=== PATIENT | female | born 1960 | race Caucasian/White ===

== ENCOUNTER 2017-07-16 11:52 | Inpatient (IN) ==
[2017-07-16] MEDS ORDERED: *HR* HYDROcodone/Acet 10/325 mg TABLET PO ONE (11:56)
[2017-07-16] MEDS ORDERED: Ibuprofen 800 MG TABLET PO ONE (11:57)
--- NOTE | 2017-07-16 12:04 | Emergency Department Note ---
Disposition Clinical Impression: Macrocytic anemia Fall Qualifiers: Encounter type: initial encounter Qualified Code(s): W19.XXXA - Unspecified fall, initial encounter Hip fracture Qualifiers: Encounter type: initial encounter Fracture type: closed Laterality: right Qualified Code(s): S72.001A - Fracture of unspecified part of neck of right femur, initial encounter for closed fracture Disposition: Admitted As Inpatient Condition: Fair Referrals: Bravo De Los Santos MD [Primary Care Provider] - Forms: ED Satisfaction Letter Time of Disposition: 12:30 Lower Extremity Injury HPI - General Chief Complaint: ED Extremity Injury, Lower Stated Complaint: fall Time Seen by Provider: 07/16/17 11:55 Source: patient, EMS Mode of arrival: EMS Limitations: no limitations Nursing Notes Reviewed: Yes Vital Signs Reviewed: Yes - History of Present Illness HPI Narrative: Patient presents from home by EMS after a fall at 7 PM last evening. She states she tripped over a dust muller. She complains of right thigh pain. Pain with ambulation. She has been unable to bear full weight. No analgesics taken prior to arrival and she takes no blood thinners. She denies other injury Pt Subjective Complaint: thigh injury Injury location: Right thigh Onset (ago): hour(s) Mechanism of Injury: blunt, fall Context: direct blow Place: home Pain Severity: severe Improves with: immobilization Worsens with: weight bearing, movement, palpation Associated symptoms: Reports: unable to bear weight - Related Data Home Medications Medication Instructions Recorded Confirmed ALPRAZolam [Xanax 1 MG Tablet] 1 mg PO TID PRN 07/16/17 07/16/17 Megestrol Acetate [Megace] 40 mg PO BID 07/16/17 07/16/17 Mirtazapine [Remeron] 15 mg PO HS 07/16/17 07/16/17 Allergies Allergy/AdvReac Type Severity Reaction Status Date / Time No Known Allergies Allergy Verified 07/16/17 11:52 All systems ED: reviewed and negative except as stated. Constitutional: Reports: as per HPI Eyes: Reports: as per HPI ENT ED: Reports: as per HPI Cardiovascular: Reports: as per HPI Respiratory: Reports: as per HPI Gastrointestinal: Reports: as per HPI Genitourinary: Reports: as per HPI Musculoskeletal: Reports: other (Right thigh pain) Integumentary: Reports: as per HPI Neurological: Reports: as per HPI Psychiatric: Reports: as per HPI Endocrine: Reports: as per HPI Hematological/Lymphatic: Reports: as per HPI Allergic/Immunologic: Reports: as per HPI Past Medical History - Past Medical History Source: patient Medical history: Reports: no medical history Psychiatric history: Reports: anxiety, depression - Social History Smoking Status: Former smoker Smokeless Tobacco Status: No Alcohol use: Reports: none Drug use: Reports: none Physical Exam - General Limitations: no limitations General appearance: alert, in no apparent distress, anxious - Head Head exam: atraumatic - Eye Eye exam: Present: normal appearance - ENT ENT exam: normal exam - Neck Neck exam: Present: normal inspection - Chest Chest inspection: Present: normal inspection, symmetric chest wall rise - Respiratory Respiratory exam: Present: normal lung sounds bilaterally - Cardiovascular Cardiovascular exam: Present: regular rate, normal rhythm, normal heart sounds - Extremities Exam Extremities exam: Present: normal inspection, tenderness (Tender without crepitus or gross deformity to the right upper lateral thigh.) - Expanded Lower Extremity Exam Hip/Pelvis exam: Present: normal inspection, full ROM Knee exam: Present: normal inspection Lower leg exam: Present: normal inspection Ankle exam: Present: normal inspection Foot/toe exam: Present: normal inspection Neurovascular/Tendon exam: Absent: pulse deficit, sensory deficit - Neurological Exam Neurological exam: Present: alert, oriented X3, CN II-XII intact - Psychiatric Psychiatric exam: Present: anxious - Skin Skin exam: Present: warm, dry, intact Course Course Narrative: Patient presents after mechanical fall. She complains of right thigh pain. Imaging studies ordered. Analgesics offered - Reevaluation(s) Reevaluation #1: X-ray image reviewed by me. Call placed orthopedics. I will arrange admission Reevaluation #2: Dr. Dior, orthopedics, has evaluated the patient in the ED. Dr. Weston accepts admission - Consultations Consultation #1: Call placed to orthopedics professional housing consultant Vital Signs Temperature 98.4 F 07/16/17 11:53 Pulse Rate 84 07/16/17 11:53 Respiratory Rate 16 07/16/17 11:53 Blood Pressure 119/78 07/16/17 11:53 O2 Sat by Pulse Oximetry 97 07/16/17 11:53 Temperature 98.4 F 07/16/17 11:53 Pulse Rate 84 07/16/17 11:53 Respiratory Rate 16 07/16/17 11:53 Blood Pressure 119/78 07/16/17 11:53 O2 Sat by Pulse Oximetry 97 07/16/17 11:53 Oxygen Delivery Oxygen Delivery Room Air Extremity Injury, Lower - Lab Data Lab results reviewed: Yes I reviewed the patient's lab results. Result diagrams: 07/16/17 12:39 Lab Results 07/16/17 Range/Units 12:39 WBC 4.4 (4.3-11.1) K/mcL RBC 2.67 L (3.82-4.97) M/mcL Hgb 9.7 L (11.5-15.4) g/dL Hct 28.5 L (35.3-44.9) % MCV 106.7 H (83.0-100.0) fL MCH 36.3 H (28.0-33.3) pg MCHC 34.0 (31.6-35.5) g/dL RDW 16.4 H (11.5-14.5) % Plt Count 161 (140-400) K/mcL MPV 9.8 (9.4-12.4) fL Immature Gran % 0.5 (0-4) % Seg Neutrophils % 67.4 % Lymphocytes % 28.2 % Monocytes % 1.6 % Eosinophils % 2.3 % Basophils % 0.0 % Neutrophils # 2.9 (1.6-8.9) K/mcL Lymphocytes # 1.2 (0.6-4.6) K/mcL Monocytes # 0.1 (0.0-1.3) K/mcL Eosinophils # 0.1 (0.0-0.6) K/mcL Basophils # 0.0 (0.0-0.2) K/mcL - Radiology Data Radiology results reviewed: Yes I reviewed the patient's radiology results. - EKG Data EKG attestation: Yes I reviewed and interpreted this EKG. EKG results narrative: Normal sinus rhythm rate 74. GA 134 QRS 71 QT/QTC 371/398. No previous studies for comparison
[2017-07-16] MEDS ORDERED: *HR* FentaNYL (PF) 100 MCG/2 ML VIAL IVP ONE (12:28)
[2017-07-16 12:49] LABS: Eosinophils # 0.1 K/mcL (0.0-0.6); Eosinophils % 2.3 %; Hematocrit 28.5 % (35.3-44.9); Hemoglobin 9.7 g/dL (11.5-15.4); Immature Granulocytes % 0.5 % (0-4); Lymphocytes # 1.2 K/mcL (0.6-4.6); Lymphocytes % 28.2 %; Mean Corpuscular Hemoglobin 36.3 pg (28.0-33.3); Mean Corpuscular Volume 106.7 fL (83.0-100.0); Mean Platelet Volume 9.8 fL (9.4-12.4); Monocytes # 0.1 K/mcL (0.0-1.3); Monocytes % 1.6 %; Neutrophils # 2.9 K/mcL (1.6-8.9); Platelet Count 161 K/mcL (140-400); Red Blood Count 2.67 M/mcL (3.82-4.97); Red Cell Distribution Width 16.4 % (11.5-14.5); Segmented Neutrophils % 67.4 %
[2017-07-16] MEDS ORDERED: *HR* Morphine 2 MG/ML SYRINGE IVP PRN (12:57)
[2017-07-16] MEDS ORDERED: Ondansetron 4 MG/2 ML VIAL IVP PRN ×2 (12:57→14:59)
[2017-07-16] MEDS ORDERED: Naloxone 0.4 MG/ML INJ IVP PRN ×2 (12:57→15:34)
[2017-07-16 13:02] LABS: INR 1.4; Prothrombin Time 15.1 Seconds (9.4-12.1)
--- NOTE | 2017-07-16 13:06 | Orthopedic Consult Note ---
Date of Encounter: 07/16/17 Time of Encounter: 13:04 Assessment and Plan (1) Hip fracture Current Visit: Yes Status: Acute I did discuss the diagnosis in detail with the patient. She does have a right intertrochanteric hip fracture as described above. Treatment options were discussed and my recommendation was for internal fixation in order to stabilize the right hip, control the pain, and help facilitate nursing care. The risks discussed included but were not limited to stiffness, bleeding, infection, blood clots, damage to neurovascular structures, tendons, ligaments, and bone. Also discussed was the risk of continued symptoms and possible need for further procedures. I did discuss the anesthesia risks including stroke, heart attack, and . I did discuss the reasonable, foreseeable postoperative course with the patient. The patient does have a low hemoglobin and history of anemia. A type and screen has been ordered, and she is at high risk of requiring a blood transfusion. She will require medical clearance. I did discuss this with the patient in simple terms and she did wish to proceed and consent was obtained. Qualifiers: Encounter type: initial encounter Fracture type: closed Laterality: right Qualified Code(s): S72.001A - Fracture of unspecified part of neck of right femur, initial encounter for closed fracture History of Present Illness HPI: Ms. Aragon is a 56 year old female with a history of anemia, anxiety, and depression who comes in for evaluation of her right lower extremity. She lives independently with her . She had an injury last night when she tripped over a broom and had right hip and thigh pain. She did not think that she was seriously injured and was unable to ambulate and drive herself across the floor. Due to persistent pain she presented to the emergency department today where x-rays did demonstrate a nondisplaced intertrochanteric hip fracture. She was admitted to the hospitalist and orthopedics was counseled today to evaluate and manage the patient. My evaluation the patient planes of isolated pain about the right groin and proximal thigh region. She denies any headaches , neck pain, chest pain, abdominal pain, bilateral upper extremity pain, and left lower extremity pain. She denies any numbness, tingling, or any other associated signs or symptoms. Any movement of the right lower extremity exacerbates her symptoms. No other modifying factors. Past Med Surg Social Fam HX - Past Medical History Medical history: no medical history Psychiatric history: anxiety, depression - Social History Smoking Status: Former smoker Smokeless Tobacco Status: No Alcohol use: none Drug use: none Medications and Allergies ALPRAZolam [Xanax 1 MG Tablet] 1 mg PO TID PRN 07/16/17 [History] Megestrol Acetate [Megace] 40 mg PO BID 07/16/17 [History] Mirtazapine [Remeron] 15 mg PO HS 07/16/17 [History] 3 Allergy/AdvReac Type Severity Reaction Status Date / Time No Known Allergies Allergy Verified 07/16/17 11:52 All Systems Reviewed: Constitutional and musculoskeletal systems were reviewed and are negative unless otherwise stated in history of present illness. Physical Exam - Constitutional Vitals: Temp Pulse Resp BP Pulse Ox 98.4 F 84 16 119/78 97 07/16/17 11:53 07/16/17 11:53 07/16/17 11:53 07/16/17 11:53 07/16/17 11:53 Constitutional -Vitals reviewed -The patient is exceedingly lean. -Mood is pleasant. -The patient is well groomed. Psychiatric -The patient is fully alert and oriented x 3. Respiratory: -Respiratory effort normal Abdomen: -Soft abdomen -Non tender -Non distended: Left upper extremity: -No deformities. The overlying skin is intact. No obvious signs of acute trauma. -No tenderness to palpation throughout. -No significant pain with passive motion of the shoulder, elbow, wrist, and fingers within the limits of the bed. -Able to make an "OK" sign, cross the index and long fingers, and extend the thumb. -Sensation grossly intact to light touch throughout the median, radial, and ulnar distributions. -Radial pulse is present; Fingers have good capillary refill. Right upper extremity: -No deformities. The overlying skin is intact. -There is tenderness in the groin region as well as the proximal lateral thigh. -I did not range the hip due to the known fracture. -No tenderness along the distal thigh, leg, ankle, foot, or toes. -Able to dorsiflex and plantarflex the ankle and toes. -Sensation is grossly intact to light touch throughout the sural, saphenous, superficial peroneal, and deep peroneal distributions. -Toes have good capillary refill. Left lower extremity: -No deformities. The overlying skin is intact. No obvious signs of acute trauma. -No tenderness to palpation throughout. -No pain with passive motion of the hip, knee, ankle, and toes within the limits of the bed. -No pain with axial loading of the thigh. -Able to dorsiflex and plantarflex the ankle and toes. -Sensation is grossly intact to light touch throughout the sural, saphenous, superficial peroneal, and deep peroneal distributions. -Toes have good capillary refill. Right lower extremity: -No deformities. The overlying skin is intact. No obvious signs of acute trauma. -No tenderness to palpation throughout. -No pain with passive motion of the hip, knee, ankle, and toes within the limits of the bed. -No pain with axial loading of the thigh. -Able to dorsiflex and plantarflex the ankle and toes. -Sensation is grossly intact to light touch throughout the sural, saphenous, superficial peroneal, and deep peroneal distributions. -Toes have good capillary refill. Diagnostic Imaging: I did personally review and interpret an x-ray of the pelvis as well as right femur which demonstrates a nondisplaced standard obliquity intertrochanteric right hip fracture. Results - Labs Result Diagrams: 07/16/17 12:39 Labs: Abnormal lab results RBC 2.67 M/mcL (3.82-4.97) L 07/16/17 12:39 Hgb 9.7 g/dL (11.5-15.4) L 07/16/17 12:39 Hct 28.5 % (35.3-44.9) L 07/16/17 12:39 MCV 106.7 fL (83.0-100.0) H 07/16/17 12:39 MCH 36.3 pg (28.0-33.3) H 07/16/17 12:39 RDW 16.4 % (11.5-14.5) H 07/16/17 12:39 PT 15.1 Seconds (9.4-12.1) H 07/16/17 12:39 H & H 07/16/17 Range/Units 12:39 Hgb 9.7 L (11.5-15.4) g/dL Hct 28.5 L (35.3-44.9) % All other labs normal. Consult Discharge Plan - Plan Referrals: Bravo De Los Santos MD [Primary Care Provider] -
[2017-07-16 13:09] LABS: Alanine Aminotransferase 20 Units/L (0-55); Albumin 4.3 g/dL (3.5-5.0); Albumin/Globulin Ratio 1.8 (1.1-2.2); Alkaline Phosphatase 71 Units/L (38-126); Aspartate Amino Transferase 20 Units/L (5-34); BUN/Creatinine Ratio 21 (6-26); Bilirubin,Total 1.5 mg/dL (0.2-1.2); Blood Urea Nitrogen 14 mg/dL (7-20); Calcium 9.5 mg/dL (8.6-10.8); Carbon Dioxide 25 mEq/L (19-29); Chloride 107 mEq/L (98-109); Globulin 2.4 g/dL (2.4-3.5); Glucose 87 mg/dL (70-99); Osmolality,Calculated 288 (280-300); Potassium 3.7 mEq/L (3.5-4.5); Sodium 139 mEq/L (136-145); Total Protein 6.7 g/dL (6.0-8.3); eGFR For African Americans > 60 (> 60); eGFR For Non-African Americans > 60 (> 60)
[2017-07-16] MEDS ORDERED: 0.9 % Sodium Chloride 1,000 ML ONE (13:15)
--- NOTE | 2017-07-16 13:25 | Internal Med History&Physical ---
Date of Encounter: 07/16/17 Time of Encounter: 13:00 Assessment and Plan (1) Hip fracture Current visit: Yes Status: Acute s/p mechanical fall orthopedic consultation appreciated patient is at low risk for an intermediate risk procedure pain control PT/OT after surgery will initiate DVT ppx after surgery NPO after midnight Qualifiers: Encounter type: initial encounter Fracture type: closed Laterality: right Qualified Code(s): S72.001A - Fracture of unspecified part of neck of right femur, initial encounter for closed fracture (2) Fall Current visit: Yes Status: Acute s/p mechanical fall ortho intervention for hip fracture repair PT/OT after surgery Qualifiers: Encounter type: initial encounter Qualified Code(s): W19.XXXA - Unspecified fall, initial encounter (3) Anxiety Current visit: Yes Status: Chronic continue home medications (4) Depression Current visit: Yes Status: Chronic continue home medications Qualifiers: Depression Type: unspecified Qualified Code(s): F32.9 - Major depressive disorder, single episode, unspecified (5) Macrocytic anemia Current visit: Yes Status: Chronic H&H low but acceptable no acute bleeding reported at this time will do anemia work up (Iron studies, Ferritin, Vit B12, Folate) continue to monitor H&H and transfuse as needed patient at high risk for requiring transfusions post-op (6) DVT prophylaxis Current visit: Yes Status: Acute SCD Lovenox SQ after surgery Internal Medicine - H&P: HPI Chief complaint: s/p fall Admitted From: Home Plans for Post Hospital Care: Transfer Half-Way Facility History of present illness: Ms. Aragon is a 56 year old female with PMH Of depression and anxiety presents to the hospital for evaluation of right hip pain, s/p fall. Patient reports of having a mechanical fall last night and since the pain persisted, she came to the ER for further evaluation. Upon further evaluation, patient was found to have right hip fracture. Pt denies any other symptoms apart from the pain on right hip. She was evaluated by orthopedic surgery and is tentatively schedule for surgery later today. Past Med Surg Social Fam HX - Past Medical History Medical history: no medical history Psychiatric history: anxiety, depression - Social History Smoking Status: Former smoker Smokeless Tobacco Status: No Alcohol use: none Drug use: none Internal Medicine - H&P: Meds ALPRAZolam [Xanax 1 MG Tablet] 1 mg PO TID PRN 07/16/17 [History] Megestrol Acetate [Megace] 40 mg PO BID 07/16/17 [History] Mirtazapine [Remeron] 15 mg PO HS 07/16/17 [History] 3 Allergy/AdvReac Type Severity Reaction Status Date / Time No Known Allergies Allergy Verified 07/16/17 11:52 All Systems PM: A 10-system review of systems was performed and is negative for pertinent findings except as documented above in the HPI. - Constitutional Constitutional: no chills, no fatigue, no fever(s), no weakness - Constitutional Vitals: Temp Pulse Resp BP Pulse Ox 98.4 F 84 16 119/78 97 07/16/17 11:53 07/16/17 11:53 07/16/17 11:53 07/16/17 11:53 07/16/17 11:53 General appearance: Present: A&O X 3, no acute distress - Head Head exam: Present: atraumatic, normocephalic - Respiratory Respiratory exam: Absent: respiratory distress, wheezes - Cardiovascular Cardiovascular exam: Present: RRR, +S1, +S2. Absent: diastolic murmur, gallop, rubs, systolic murmur - GI/Abdominal GI/Abdominal exam: Present: normal bowel sounds, soft, no peritoneal signs. Absent: distended, tenderness - Extremities Exam Extremities exam: Present: warm, radial pulses palpable and symmetrical. Absent : calf tenderness, cyanotic, pedal edema - Neurological Exam Neurological exam: Present: alert, oriented X3 - Psychiatric Psychiatric exam: Present: normal affect, normal mood Internal Med - H&P Results - Labs CBC & Chem 7: 07/16/17 12:39 07/16/17 12:39
[2017-07-16] MEDS ORDERED: *HR* Propofol 200 MG/20 ML VIAL IVP ONE ×2 (13:31→13:42)
[2017-07-16] MEDS ORDERED: *HR* Midazolam HCl 2 MG/2 ML VIAL ONE ×2 (13:31→13:42)
[2017-07-16] MEDS ORDERED: *HR* FentaNYL (PF) 100 MCG/2 ML VIAL ONE ×2 (13:31→13:42)
--- NOTE | 2017-07-16 13:41 | Anesthesia Evaluation PreOp ---
Date of Encounter: 07/16/17 Time of Encounter: 13:30 - Past History Planned Operation: Right Hip IM Nailing Cardiac History: Denies any Significant Hx Pulmonary History: Former smoker (quit 3 years ago, smoked for 30 years) VARITYPE OPERATOR History: Denies Any Significant HX Other Medical History: Other (anxiety/depression) Anesthesia History: No Prior Anesthetic Complications, Past Anesthesia Alcohol Use: none Drug use: none Medications and Allergies ALPRAZolam [Xanax 1 MG Tablet] 1 mg PO TID PRN 07/16/17 [History] Megestrol Acetate [Megace] 40 mg PO BID 07/16/17 [History] Mirtazapine [Remeron] 15 mg PO HS 07/16/17 [History] 3 Allergy/AdvReac Type Severity Reaction Status Date / Time No Known Allergies Allergy Verified 07/16/17 11:52 - Meds/Allergy Pre-op Review Medications Reviewed: Yes Allergies Reviewed: Yes Beta Blockers on Current Med List: No Anesthesia Results - Labs 07/16/17 12:39 07/16/17 12:39 Laboratory Tests 07/16/17 07/16/17 07/16/17 12:39 12:39 12:39 WBC 4.4 Hgb 9.7 L Hct 28.5 L Plt Count 161 PT 15.1 H INR 1.4 Sodium 139 Potassium 3.7 BUN 14 Creatinine 0.66 - Imaging EKG: report reviewed (07/16/2017 SR) Anesthesia Exam O2 Sat Height 1.63 m Weight 48.081 kg O2 Sat by Pulse Oximetry 96 O2 Sat by Pulse Oximetry 96 O2 Sat by Pulse Oximetry 97 Vital Signs Temp Pulse Resp BP Pulse Ox 98.4 F 84 16 119/78 97 07/16/17 11:53 07/16/17 11:53 07/16/17 11:53 07/16/17 11:53 07/16/17 11:53 Height: 5'4'' Weight: 106 lbs NPO (# of Hours): 6 Pain Scale: 7 Pain Scale Used: Numeric (1 - 10) - HEENT Pupil (Motor): EOMI Mallampati: II Teeth: Edentulous Denture Type: Upper: Complete, Lower: Complete Oral Opening: Greater than 3 - VARITYPE OPERATOR LOC: Oriented VARITYPE OPERATOR Motor: Normal RUE, Normal LUE, Normal RLE, Normal LLE, Normal Face VARITYPE OPERATOR Sensory: Normal: RUE, LUE, RLE, LLE, Face - Cardiac Rhythm: Regular Murmur: None - Pulmonary Breath Sounds: bilateral Clear Respiratory Effort: Symmetrical Anesthesia Assess/Plan ASA Score: 2 Modified Tran Scale for Level of Consciousness: Cooperative, oriented, and tranquil Anesthetic Plan: General Monitoring Plan: Standard Monitors Recovery Plan: PACU
[2017-07-16] MEDS ORDERED: Lidocaine -MPF 2% 2 ML VIAL ONE (13:42)
[2017-07-16] MEDS: Ringers Solution, Lactated 1,000 ML IVC SCH ×3 (13:50→15:53)
[2017-07-16] MEDS ORDERED: EPHEDrine 50 MG/ML VIAL ONE (14:18)
[2017-07-16] MEDS ORDERED: ceFAZolin 2,000 MG in D5% in Water 100 ML IVPB ONE (14:26)
[2017-07-16] MEDS ORDERED: Ondansetron 4 MG/2 ML VIAL ONE (14:51)
[2017-07-16] MEDS ORDERED: *HR* HYDROmorphone (PF) 1 MG/ML SYRINGE IVP PRN (14:59)
--- NOTE | 2017-07-16 15:30 | Electrocardiograph Report ---
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
--- NOTE | 2017-07-16 15:55 | Orthopedic Operative Note ---
Date of procedure: 07/16/17 Procedure: OPERATIVE REPORT DATE OF PROCEDURE: 07/16/2017 SURGEON: Mauri Dior MD CODING AND REIMBURSEMENT SPECIALIST(S): There were no assistants PREOPERATIVE DIAGNOSIS: Right intertrochanteric hip fracture POSTOPERATIVE DIAGNOSIS: Right intertrochanteric hip fracture PROCEDURE: Internal fixation of the right intertrochanteric hip fracture with medullary nail ANESTHESIA: General anesthesia PREOPERATIVE ANTIBIOTICS: 2 g of Ancef ESTIMATED BLOOD LOSS: 100 milliliters FLUIDS GIVEN: 2200 mL of saline URINE OUTPUT: 1200 mL IMPLANTS: Stanley gamma 3 180 mm medullary nail by 125 degree with 90 mm lag screw PREOPERATIVE NOTE AND INDICATIONS: This patient is a 56-year-old female who sustained an injury last night after tripping over a broom. This did cause right hip and groin pain. She did not feel she was seriously injured. This morning she came to the ER due to persistent pain. X-ray showed a right intertrochanteric hip fracture. Recommendation was for surgical fixation in order to stabilize the hip, control pain, and help facilitate nursing care. The surgical plan was discussed with the patient. The risks, benefits, alternatives, and potential complications of this procedure were discussed with the patient including injury to veins, arteries, nerves, tendons, ligaments, and bone. Also discussed were the risks of infection, bleeding, pain, blood clots, the possible need for a blood transfusion, the possible need for further procedures, heart attack, stroke, and . Additional risks including the risk of malunion, nonunion, and the need for hardware removal as well as periprosthetic fracture. All of this was explained in simple terms, and the patient verbalized understanding and wished to proceed. Consent was given to proceed with surgery. PROCEDURE: The patient was seen in the preoperative holding area where the identify and the consent were confirmed. The right hip was marked. Final questions were answered. The patient was brought back to the operating room. A huddle was performed with the patient and all vital surgical team members confirming patient identity, the correct procedure, and the correct operative site. General anesthesia was administered. The patient was placed on the traction table and right lower extremity placed in traction boot and internally rotated. The left lower extremity was flexed and abducted out of the way. X-rays confirmed that there is no displacement of the fracture. The right thigh was prepped and draped in the usual sterile fashion. A surgical time out was performed immediately preceding the incision with all personnel in the operating room to confirm patient identity, the correct operative site and extremity, correct radiographic studies, availability of appropriate surgical equipment, and agreement on the planned procedure. Is small longitudinal incision was made just proximal to the greater trochanter. Dissection proceeded through the subcutaneous tissue and gluteal fascia was opened. The guidepin was placed and the proximal femur opened. The definitive nail was placed into the medullary canal and a second small incision was made to place a guidewire into the femoral head. Once position was confirmed this was measured and reamed and the definitive 90 mm lag screw was placed and the fracture was compressed and locked. A third incision was made distally and dissection proceeded through subcutaneous tissue and fascia and the 35 mm interlocking screw was placed. X-rays confirmed good position of the hardware and the fracture. The 3 wounds were irrigated and the deep layer closed with 0 Vicryl stitches. The skin was closed with 3-0 Vicryl and anastacio after final irrigation. A sterile dressing was placed and the patient was taken down off the traction table and placed on her hospital bed having tolerated the procedure well. The instrument, sponge, and needle counts were correct after wound closure. POST OPERATIVE PLAN: Weight Bearing: Weightbearing as tolerated DVT Prophylaxis: Aspirin 325 mg by mouth twice a day Activity: Activities as tolerated with assistance. Wound Care: Daily dressing changes on day 2. Pain Control: Oxycodone and morphine for breakthrough Perioperative antibiotic prophylaxis: 2 doses of Ancef, 2 g each Social work for discharge planning Follow Up: 2 weeks after surgery
--- NOTE | 2017-07-16 16:14 | Orthopedic Operative Note ---
Date of procedure: 07/16/17
--- NOTE | 2017-07-16 16:31 | Anesthesia Evaluation Post Op ---
Date of Encounter: 07/16/17 Time of Encounter: 16:31 - Vital Signs Vital Signs: Last Vital Signs Temp 98.7 F 07/16/17 16:00 Pulse 72 07/16/17 16:20 Resp 14 07/16/17 16:20 BP 85/59 07/16/17 16:20 Pulse Ox 100 07/16/17 16:20 - Lungs Lungs: Clear Ascult./Percussion - Airway Airway: Non-obstructed - Cardiovascular Regular Rate - Mental Status Mental Status: Alert & Oriented, Answers Appropriately - Pain Pain Scale: 2 - Nausea Vomiting Nausea Vomiting: Not Present - Hydration Hydration: NPO - Discharge PostOp Status: Transfer Patient to floor
[2017-07-16] MEDS ORDERED: 0.9 % Sodium Chloride 500 ML IVC ONE (19:08)
[2017-07-16] MEDS: Mirtazapine 15 MG TABLET PO SCH (21:01)
[2017-07-16] MEDS: ceFAZolin 2,000 MG in D5% in Water 100 ML IVPB SCH (21:01)
[2017-07-16] MEDS: *HR* OxyCODONE Immed Rel 5 MG TABLET PO PRN (21:38)
[2017-07-16] MEDS: ALPRAZolam 1 MG TABLET PO PRN (23:39)
[2017-07-17] MEDS: ceFAZolin 2,000 MG in D5% in Water 100 ML IVPB SCH (04:18)
[2017-07-17] MEDS: *HR* OxyCODONE Immed Rel 5 MG TABLET PO PRN ×4 (04:24→21:15)
[2017-07-17] MEDS: *HR* Enoxaparin 40 MG/0.4 ML SYRINGE SQ SCH (05:01)
[2017-07-17 06:04] LABS: Eosinophils # 0.1 K/mcL (0.0-0.6); Hematocrit 20.2 % (35.3-44.9); Immature Granulocytes % 0.4 % (0-4); Lymphocytes % 36.3 %; Mean Corpuscular HGB Conc 33.7 g/dL (31.6-35.5); Mean Corpuscular Volume 109.8 fL (83.0-100.0); Mean Platelet Volume 10.9 fL (9.4-12.4); Monocytes # 0.1 K/mcL (0.0-1.3); Monocytes % 1.9 %; Neutrophils # 1.6 K/mcL (1.6-8.9); Platelet Count 101 K/mcL (140-400); Red Blood Count 1.84 M/mcL (3.82-4.97); Red Cell Distribution Width 16.9 % (11.5-14.5); Segmented Neutrophils % 58.4 %
[2017-07-17 06:12] LABS: Hemoglobin 6.8 g/dL (11.5-15.4)
[2017-07-17 06:21] LABS: BUN/Creatinine Ratio 17 (6-26); Blood Urea Nitrogen 11 mg/dL (7-20); Calcium 8.1 mg/dL (8.6-10.8); Carbon Dioxide 24 mEq/L (19-29); Chloride 110 mEq/L (98-109); Glucose 92 mg/dL (70-99); Magnesium 1.8 mg/dL (1.6-2.6); Osmolality,Calculated 287 (280-300); Phosphorous 2.6 mg/dL (2.3-4.7); Potassium 3.7 mEq/L (3.5-4.5); Sodium 139 mEq/L (136-145); eGFR For African Americans > 60 (> 60); eGFR For Non-African Americans > 60 (> 60)
[2017-07-17 08:46] LABS: % Iron Saturation 15 % (15-50); Iron 28 mcg/dL (50-170); Transferrin 131 mg/dL (180-382)
[2017-07-17] MEDS ORDERED: 0.9 % Sodium Chloride 500 ML IVC ONE (08:59)
[2017-07-17] MEDS ORDERED: 0.9 % Sodium Chloride 250 ML IVC SCH ×2 (09:00)
[2017-07-17 09:06] LABS: Ferritin 232 ng/ml (5-204)
--- NOTE | 2017-07-17 09:20 | Internal Med Progress Note ---
Date of Encounter: 07/17/17 Time of Encounter: 09:18 - Assessment and plan (1) Hip fracture Current Visit: Yes Status: Acute Assessment and plan: s/p ORIF cont excellent post op care by Ortho team Cont PT / OT Cont IV analgesia PRN, also added PO Pain meds Cont maintenance IVF due to low BP also cont fluid bolus PRN On Lovenox for DVT prophylaxis d/c ASA 325 BID due to high risk for GI bleed and other complications talked to Ortho about this cocnerned for osteoporosis -- Agree with checking Vit D levels Will ask PCP to schedule for out pt bone scan Qualifiers: Encounter type: initial encounter Fracture type: closed Laterality: right Qualified Code(s): S72.001A - Fracture of unspecified part of neck of right femur, initial encounter for closed fracture (2) Acute blood loss as cause of postoperative anemia Current Visit: Yes Status: Acute Assessment and plan: Mostly post op blood loss ordered 2 U PRBC cont close monitoring Hb / Hct (3) Anxiety Current Visit: Yes Status: Chronic Assessment and plan: cont home med Xanax PRN (4) Depression Current Visit: Yes Status: Chronic Qualifiers: Depression Type: unspecified Qualified Code(s): F32.9 - Major depressive disorder, single episode, unspecified (5) DVT prophylaxis Current Visit: Yes Status: Acute Assessment and plan: on Lovenox - Subjective Interval history: Ms. Aragon is a 56 year old female with PMH Of depression and anxiety presents to the hospital for evaluation of right hip pain, s/p fall. Patient reports of having a mechanical fall last night and since the pain persisted, she came to the ER for further evaluation. Upon further evaluation, patient was found to have right hip fracture. Pt was admitted in the hospital and went for Hip repair y/d. She still has lot of pain. Her Hb dropped down to 6.8 today. She denied any CP / SOB. No melena / hematemsis - Constitutional Vitals: Temp Pulse Resp BP Pulse Ox 98.9 F 86 16 97/68 95 07/17/17 07:08 07/17/17 07:08 07/17/17 07:08 07/17/17 07:08 07/17/17 07:08 General appearance: Present: A&O X 3, no acute distress - Head Head exam: Present: atraumatic, normal inspection - Respiratory Respiratory exam: Present: decreased breath sounds, wheezes. Absent: respiratory distress, rhonchi - Cardiovascular Cardiovascular exam: Present: RRR, +S1, +S2. Absent: systolic murmur - Extremities Exam Extremities exam: Absent: calf tenderness, pedal edema, warm Additional comments: limited ROM in Rt hip due to pain - Neurological Exam Neurological exam: Present: alert, oriented X3 - Psychiatric Psychiatric exam: Present: normal affect, normal mood Internal Medicine: Result - Labs CBC & Chem 7: 07/17/17 05:53 07/17/17 05:53 Labs: Short CBC 07/17/17 Range/Units 05:53 WBC 2.7 L (4.3-11.1) K/mcL Hgb 6.8 L D (11.5-15.4) g/dL Hct 20.2 L (35.3-44.9) % Plt Count 101 L (140-400) K/mcL Neutrophils # 1.6 (1.6-8.9) K/mcL BMP 07/17/17 05:53 Sodium 139 Potassium 3.7 Chloride 110 H Carbon Dioxide 24 BUN 11 Creatinine 0.66 Glucose 92 Calcium 8.1 L - ABG Interpretation ABG results: PT/INR, D-dimer PT 15.1 Seconds (9.4-12.1) H 07/16/17 12:39 - Impressions Impressions Fluoroscopy 07/16/17 14:10 IMPRESSION: Intraprocedural fluoroscopic spot images as above. See separate procedure report for more information. D/ / Jorge L Hernandez MD / Jorge L Hernandez MD Interpreting Provider: Jorge L Hernandez MD - VTE Documentation of Mechanical Device: Venous foot pump, device Consult Discharge Plan - Plan Referrals: Bravo De Los Santos MD [Primary Care Provider] -
--- NOTE | 2017-07-17 09:40 | Orthopedics Progress Note ---
Date of Encounter: 07/17/17 Time of Encounter: 09:38 - Assessment and Plan (1) Hip fracture Current Visit: Yes Status: Acute Qualifiers: Encounter type: initial encounter Fracture type: closed Laterality: right Qualified Code(s): S72.001A - Fracture of unspecified part of neck of right femur, initial encounter for closed fracture Subjective Interval history: S: The patient is resting in bed. Expected postoperative pain to the right hip, improved from preoperatively. No new complaints. O: Afebrile and vital signs are stable. The right thigh dressing is clean, dry, and intact. Mild pain with logrolling and axial loading of the right side. She can dorsiflex and plantarflex her ankle and toes. The foot is warm and well-perfused. A: Post internal fixation of the right hip with acute blood loss anemia from surgery P: 2 units of packed red cells will be transfused today due to the acute blood loss anemia from surgery Weightbearing as tolerated on the bilateral lower extremities Physical therapy and occupational therapy consulted [place] out this morning I did discuss DVT prophylaxis with the hospitalist and the hospitalist feels strongly about using Lovenox instead of aspirin to reduce the risk of GI bleeding, especially given her anemia. Dressing change tomorrow. Objective Vital signs: Vital Signs Temp Pulse Resp BP Pulse Ox 07/17/17 07:08 98.9 F 86 16 97/68 95 07/17/17 03:44 99.7 F H 88 15 92/60 96 07/17/17 01:00 99.5 F 80 12 94/52 95 07/16/17 20:32 97.8 F 84 16 100/62 97 07/16/17 18:52 97.9 F 80 15 87/49 99 07/16/17 17:58 97.4 F L 88 15 108/69 100 07/16/17 17:40 97.7 F 82 16 122/78 100 07/16/17 16:58 98.1 F 82 16 94/58 100 07/16/17 16:40 98.6 F 80 14 95/67 100 07/16/17 16:30 98.6 F 83 14 82/67 100 07/16/17 16:20 72 14 85/59 100 07/16/17 16:10 84 12 93/58 100 07/16/17 16:00 98.7 F 68 10 78/44 100 07/16/17 15:50 69 10 76/49 100 07/16/17 15:40 67 16 82/51 100 07/16/17 15:30 98.5 F 69 16 90/52 100 07/16/17 13:20 62 16 86/62 96 07/16/17 13:18 81/57 07/16/17 13:12 82 16 76/53 96 Intake and Output 07/16/17 07/17/17 07/17/17 23:59 07:59 15:59 Intake Total 910 / 910 100 / 100 Output Total 825 / 825 350 / 350 Balance 85 / 85 -350 / -350 100 / 100 Intake: IV Fluids 100 / 100 Ancef 2,000 MG In 100 / 100 Dextrose 5% 100 ML @ 200 mls/hr IVPB Q8H [facility] Rx#: [id number] Oral 810 / 810 100 / 100 Output: Urine 350 / 350 Catheter 475 / 475 350 / 350 Other: Meal Breakfast Percent of Meal Consumed 90% - Labs CBC & BMP: 07/17/17 05:53 07/17/17 05:53 Labs: Abnormal lab results WBC 2.7 K/mcL (4.3-11.1) L 07/17/17 05:53 RBC 1.84 M/mcL (3.82-4.97) L 07/17/17 05:53 Hgb 6.8 g/dL (11.5-15.4) L D 07/17/17 05:53 Hct 20.2 % (35.3-44.9) L 07/17/17 05:53 MCV 109.8 fL (83.0-100.0) H 07/17/17 05:53 MCH 37.0 pg (28.0-33.3) H 07/17/17 05:53 RDW 16.9 % (11.5-14.5) H 07/17/17 05:53 Plt Count 101 K/mcL (140-400) L 07/17/17 05:53 PT 15.1 Seconds (9.4-12.1) H 07/16/17 12:39 Chloride 110 mEq/L (98-109) H 07/17/17 05:53 Calcium 8.1 mg/dL (8.6-10.8) L 07/17/17 05:53 Iron 28 mcg/dL (50-170) L 07/17/17 05:53 Transferrin 131 mg/dL (180-382) L 07/17/17 05:53 Ferritin 232 ng/ml (5-204) H 07/17/17 05:53 Total Bilirubin 1.5 mg/dL (0.2-1.2) H 07/16/17 12:39 - VTE Documentation of Mechanical Device: Venous foot pump, device Consult Discharge Plan - Plan Referrals: Bravo De Los Santos MD [Primary Care Provider] -
[2017-07-17] MEDS ORDERED: 0.9 % Sodium Chloride 250 ML ONE ×2 (11:34→16:10)
[2017-07-17] MEDS ORDERED: Aspirin Enteric Coated 325 MG Tablet PO SCH (15:38)
[2017-07-17] MEDS: ALPRAZolam 1 MG TABLET PO PRN (16:39)
[2017-07-17] MEDS: Mirtazapine 15 MG TABLET PO SCH (19:49)
[2017-07-17] MEDS ORDERED: 0.9 % Sodium Chloride 1,000 ML ONE (19:58)
[2017-07-17] MEDS: 0.9 % Sodium Chloride 1,000 ML IVC SCH (20:00)
[2017-07-17 21:08] LABS: Hematocrit 25.6 % (35.3-44.9)
[2017-07-17 21:13] LABS: Hemoglobin 8.7 g/dL (11.5-15.4)
[2017-07-18] MEDS: *HR* Enoxaparin 40 MG/0.4 ML SYRINGE SQ SCH (05:33)
[2017-07-18] MEDS: *HR* OxyCODONE Immed Rel 5 MG TABLET PO PRN ×4 (05:33→18:31)
[2017-07-18 05:43] LABS: Hemoglobin 8.8 g/dL (11.5-15.4)
[2017-07-18 05:44] LABS: Basophils % 0.3 %; Eosinophils # 0.1 K/mcL (0.0-0.6); Eosinophils % 3.4 %; Hematocrit 26.4 % (35.3-44.9); Immature Granulocytes % 1.1 % (0-4); Immature Platelets 2.6 % (1.1-6.1); Lymphocytes # 1.3 K/mcL (0.6-4.6); Lymphocytes % 37.9 %; Mean Corpuscular HGB Conc 33.3 g/dL (31.6-35.5); Mean Corpuscular Hemoglobin 34.2 pg (28.0-33.3); Mean Corpuscular Volume 102.7 fL (83.0-100.0); Mean Platelet Volume 11.2 fL (9.4-12.4); Monocytes # 0.1 K/mcL (0.0-1.3); Monocytes % 1.4 %; Platelet Count 109 K/mcL (140-400); Red Blood Count 2.57 M/mcL (3.82-4.97); Red Cell Distribution Width 20.8 % (11.5-14.5); Segmented Neutrophils % 55.9 %
[2017-07-18] MEDS ORDERED: 0.9 % Sodium Chloride 1,000 ML ONE (09:37)
[2017-07-18] MEDS: Loratadine 10 MG TABLET PO SCH (09:49)
[2017-07-18] MEDS: 0.9 % Sodium Chloride 1,000 ML IVC SCH (09:52)
--- NOTE | 2017-07-18 10:03 | Orthopedics Progress Note ---
Date of Encounter: 07/18/17 Time of Encounter: 10:01 - Assessment and Plan (1) Hip fracture Current Visit: Yes Status: Acute Qualifiers: Encounter type: initial encounter Fracture type: closed Laterality: right Qualified Code(s): S72.001A - Fracture of unspecified part of neck of right femur, initial encounter for closed fracture Subjective Interval history: S: The patient is sitting comfortably up in a chair. Pain to the right hip and groin is controlled. She is slow to mobilize with therapy. O: Afebrile and vital signs are stable. Dressing change and the incisions are clean, dry, and intact. Mild pain with logrolling and axial loading of the right side. She can dorsiflex and plantarflex her ankle and toes. The foot is warm and well-perfused. A: Post internal fixation of the right hip with acute blood loss anemia from surgery P: Weightbearing as tolerated on the bilateral lower extremities Physical therapy and occupational therapy The patient is receiving Lovenox for DVT prophylaxis as well as sequential compression devices Daily dressing changes with dry gauze and Medipore tape. Orthopedically stable for discharge. Physical therapy recommending rehabilitation and I agree with this. Objective Vital signs: Vital Signs Temp Pulse Resp BP Pulse Ox 07/18/17 07:00 98.4 F 78 16 105/81 96 07/18/17 03:58 98.2 F 73 17 103/76 95 07/18/17 00:00 98.5 F 77 17 101/65 95 07/17/17 19:45 98.7 F 88 16 100/67 07/17/17 16:34 98.3 F 75 16 107/64 94 07/17/17 16:22 98.3 F 80 17 91/58 96 07/17/17 15:08 98.7 F 93 16 98/64 97 07/17/17 14:36 98.8 F 88 19 107/65 97 07/17/17 12:00 99.5 F 73 19 88/49 93 07/17/17 11:46 99.1 F 76 17 89/52 96 07/17/17 11:17 99.4 F 81 16 94/58 96 Intake and Output 07/17/17 07/18/17 07/18/17 23:59 07:59 15:59 Intake Total 410 / 410 1000 / 1000 Output Total 300 / 300 400 / 400 Balance 110 / 110 -400 / -400 1000 / 1000 Intake: IV Fluids 1000 / 1000 0.9 % Sodium Chloride 1, 1000 / 1000 000 ML @ 75 mls/hr IVC . [id number] [facility] Rx#: [id number] Oral 60 / 60 Blood Product 350 / 350 Rbcs Leuko Poor As-1 350 / 350 Unit [id number] Output: Urine 300 / 300 400 / 400 - Labs CBC & BMP: 07/18/17 05:33 07/17/17 05:53 Labs: Abnormal lab results WBC 3.5 K/mcL (4.3-11.1) L 07/18/17 05:33 RBC 2.57 M/mcL (3.82-4.97) L 07/18/17 05:33 Hgb 8.8 g/dL (11.5-15.4) L 07/18/17 05:33 Hct 26.4 % (35.3-44.9) L 07/18/17 05:33 MCV 102.7 fL (83.0-100.0) H D 07/18/17 05:33 MCH 34.2 pg (28.0-33.3) H 07/18/17 05:33 RDW 20.8 % (11.5-14.5) H 07/18/17 05:33 Plt Count 109 K/mcL (140-400) L 07/18/17 05:33 PT 15.1 Seconds (9.4-12.1) H 07/16/17 12:39 Chloride 110 mEq/L (98-109) H 07/17/17 05:53 Calcium 8.1 mg/dL (8.6-10.8) L 07/17/17 05:53 Iron 28 mcg/dL (50-170) L 07/17/17 05:53 Transferrin 131 mg/dL (180-382) L 07/17/17 05:53 Ferritin 232 ng/ml (5-204) H 07/17/17 05:53 Total Bilirubin 1.5 mg/dL (0.2-1.2) H 07/16/17 12:39 - VTE Documentation of Mechanical Device: Venous foot pump, device Consult Discharge Plan - Plan Additional Instructions: USP DISCHARGE INSTRUCTIONS Dr. Dior PROCEDURE PERFORMED Reduction and fixation of right hip. Incision care -Daily dressing changes to the right hip with dry gauze and either paper tape or medipore tape. -Avoid soaking wound in water (no hot tubs, bathtubs, swimming pools). -May shower after 2 weeks from surgery date. Carefully wash incision with soap and water. Gently pat it dry. Don't rub the incision, or apply creams or lotions. Sit on a shower stool when showering to keep from falling. Weight bearing status -Weightbearing as tolerated to the bilateral lower extremities. Medications -Pain medication per the discharging medical doctor -Take your lovenox as prescribed for 28 days from the date of the surgery. Other -Knee high MIR hose 23 hours per day -Consult physical and occupational therapy for mobilization. -Up to chair with assistance at least twice per day. -Follow up with your primary care physician to discuss testing for bone mineral density. Follow-up with Dr. Dior at the office 2 weeks from the surgery date for a post operative evaluation. Call the office at [phone] to schedule appointment. Referrals: Bravo De Los Santos MD [Primary Care Provider] -
[2017-07-18] MEDS: ALPRAZolam 1 MG TABLET PO PRN (12:51)
--- NOTE | 2017-07-18 14:21 | Internal Med Progress Note ---
Date of Encounter: 07/18/17 Time of Encounter: 14:19 - Assessment and plan (1) Hip fracture Current Visit: Yes Status: Acute Assessment and plan: s/p ORIF cont excellent post op care by Ortho team Cont PT / OT Cont PO and IV analgesics PRN d/c IVF ..tolerating pO intake well and her BP improved too On Lovenox for DVT prophylaxis concerned for osteoporosis -- checked Vit D levels Will ask PCP to schedule for out pt bone scan PT recommend for ECF / Swing bed transfer for short term PT / OT.. will talk to CM / SW about this Qualifiers: Encounter type: initial encounter Fracture type: closed Laterality: right Qualified Code(s): S72.001A - Fracture of unspecified part of neck of right femur, initial encounter for closed fracture (2) Acute blood loss as cause of postoperative anemia Current Visit: Yes Status: Acute Assessment and plan: Mostly post op blood loss s/p 2 U PRBC - improved and stable Hb @ 8.8 cont close monitoring Hb / Hct (3) Anxiety Current Visit: Yes Status: Chronic Assessment and plan: cont home med Xanax PRN (4) Depression Current Visit: Yes Status: Chronic Qualifiers: Depression Type: unspecified Qualified Code(s): F32.9 - Major depressive disorder, single episode, unspecified (5) DVT prophylaxis Current Visit: Yes Status: Acute Assessment and plan: on Lovenox - Subjective Interval history: Ms. Aragon is a 56 year old female with PMH Of depression and anxiety presents to the hospital for evaluation of right hip pain, s/p fall. Patient reports of having a mechanical fall last night and since the pain persisted, she came to the ER for further evaluation. Upon further evaluation, patient was found to have right hip fracture. Pt was admitted in the hospital and went for Hip repair on 07/16/17. Her Hb dropped down to 6.8 post operatively, received 2 U PRBC. She denied any CP / SOB. No melena / hematemsis. Her leg pain is tolerable with meds now - Constitutional Vitals: Temp Pulse Resp BP Pulse Ox 98.4 F 79 16 112/76 98 07/18/17 09:59 07/18/17 09:59 07/18/17 09:59 07/18/17 09:59 07/18/17 09:59 General appearance: Present: A&O X 3, no acute distress - Head Head exam: Present: atraumatic, normal inspection - Respiratory Respiratory exam: Present: decreased breath sounds, wheezes. Absent: rales, respiratory distress, rhonchi - Cardiovascular Cardiovascular exam: Present: RRR, +S1, +S2. Absent: diastolic murmur, gallop, rubs, systolic murmur - GI/Abdominal GI/Abdominal exam: Present: soft. Absent: rebound, rigid, tenderness - Extremities Exam Extremities exam: Absent: calf tenderness, pedal edema, tenderness Additional comments: limited ROM over Rt hip due to pain - Neurological Exam Neurological exam: Present: alert, oriented X3 - Psychiatric Psychiatric exam: Present: normal affect, normal mood Internal Medicine: Result - Labs CBC & Chem 7: 07/18/17 05:33 07/17/17 05:53 Labs: Short CBC 07/17/17 07/18/17 Range/Units 20:57 05:33 WBC 3.5 L (4.3-11.1) K/mcL Hgb 8.7 L D 8.8 L (11.5-15.4) g/dL Hct 25.6 L 26.4 L (35.3-44.9) % Plt Count 109 L (140-400) K/mcL Neutrophils # 2.0 (1.6-8.9) K/mcL - ABG Interpretation ABG results: PT/INR, D-dimer PT 15.1 Seconds (9.4-12.1) H 07/16/17 12:39 - VTE Documentation of Mechanical Device: Venous foot pump, device Consult Discharge Plan - Plan Additional Instructions: HALFWAY DISCHARGE INSTRUCTIONS Dr. Dior PROCEDURE PERFORMED Reduction and fixation of right hip. Incision care -Daily dressing changes to the right hip with dry gauze and either paper tape or medipore tape. -Avoid soaking wound in water (no hot tubs, bathtubs, swimming pools). -May shower after 2 weeks from surgery date. Carefully wash incision with soap and water. Gently pat it dry. Don't rub the incision, or apply creams or lotions. Sit on a shower stool when showering to keep from falling. Weight bearing status -Weightbearing as tolerated to the bilateral lower extremities. Medications -Pain medication per the discharging medical doctor -Take your lovenox as prescribed for 28 days from the date of the surgery. Other -Knee high MIR hose 23 hours per day -Consult physical and occupational therapy for mobilization. -Up to chair with assistance at least twice per day. -Follow up with your primary care physician to discuss testing for bone mineral density. Follow-up with Dr. Dior at the office 2 weeks from the surgery date for a post operative evaluation. Call the office at [phone] to schedule appointment. Referrals: Bravo De Los Santos MD [Primary Care Provider] -
[2017-07-18] MEDS: Mirtazapine 15 MG TABLET PO SCH (22:09)
[2017-07-19] MEDS: *HR* OxyCODONE Immed Rel 5 MG TABLET PO PRN ×5 (00:13→21:51)
[2017-07-19] MEDS: ALPRAZolam 1 MG TABLET PO PRN ×2 (00:13→09:12)
[2017-07-19] MEDS: *HR* Enoxaparin 40 MG/0.4 ML SYRINGE SQ SCH (06:05)
[2017-07-19 07:44] LABS: Hematocrit 24.2 % (35.3-44.9); Hemoglobin 8.3 g/dL (11.5-15.4)
--- NOTE | 2017-07-19 07:53 | Orthopedics Progress Note ---
Date of Encounter: 07/19/17 Time of Encounter: 07:51 - Assessment and Plan (1) Hip fracture Current Visit: Yes Status: Acute Qualifiers: Encounter type: initial encounter Fracture type: closed Laterality: right Qualified Code(s): S72.001A - Fracture of unspecified part of neck of right femur, initial encounter for closed fracture Subjective Interval history: S: Pain controlled to the right hip and groin. No new injuries or complaints. She has taken a few steps in her room using a walker. Otherwise slow to mobilize. O: Afebrile and vital signs are stable. Dressing changed and the incisions are clean, dry, and intact. Mild pain with logrolling and axial loading of the right side. She can dorsiflex and plantarflex her ankle and toes. The foot is warm and well-perfused. A: Post internal fixation of the right hip with acute blood loss anemia from surgery P: Weightbearing as tolerated on the bilateral lower extremities Physical therapy and occupational therapy The patient is receiving Lovenox for DVT prophylaxis as well as sequential compression devices Daily dressing changes with dry gauze and Medipore tape. Orthopedically stable for discharge. Rehabilitation upon discharge. Follow-up with me ~2 weeks from the surgery date. Objective Vital signs: Vital Signs Temp Pulse Resp BP Pulse Ox 07/19/17 06:21 98.2 F 78 18 107/69 96 07/19/17 04:08 98.3 F 68 18 126/83 97 07/18/17 23:51 98.2 F 80 17 125/80 97 07/18/17 20:00 98.8 F 84 17 128/83 97 07/18/17 15:00 98.7 F 81 18 121/73 98 07/18/17 09:59 98.4 F 79 16 112/76 98 Intake and Output 07/18/17 07/18/17 07/19/17 15:59 23:59 07:59 Intake Total 1890 / 1890 600 / 600 0 / 0 Output Total 650 / 650 1150 / 1150 300 / 300 Balance 1240 / 1240 -550 / -550 -300 / -300 Intake: IV Fluids 1400 / 1400 0.9 % Sodium Chloride 1, 1000 / 1000 000 ML @ 75 mls/hr IVC . [id number] [facility] Rx#: [id number] Oral 490 / 490 600 / 600 0 / 0 Output: Urine 650 / 650 1150 / 1150 300 / 300 Other: Meal Lunch Percent of Meal Consumed 25% # Voids 1 1 # Bowel Movements 0 0 - Labs CBC & BMP: 07/19/17 04:46 07/17/17 05:53 Labs: Abnormal lab results WBC 3.5 K/mcL (4.3-11.1) L 07/18/17 05:33 RBC 2.57 M/mcL (3.82-4.97) L 07/18/17 05:33 Hgb 8.3 g/dL (11.5-15.4) L 07/19/17 04:46 Hct 24.2 % (35.3-44.9) L 07/19/17 04:46 MCV 102.7 fL (83.0-100.0) H D 07/18/17 05:33 MCH 34.2 pg (28.0-33.3) H 07/18/17 05:33 RDW 20.8 % (11.5-14.5) H 07/18/17 05:33 Plt Count 109 K/mcL (140-400) L 07/18/17 05:33 PT 15.1 Seconds (9.4-12.1) H 07/16/17 12:39 Chloride 110 mEq/L (98-109) H 07/17/17 05:53 Calcium 8.1 mg/dL (8.6-10.8) L 07/17/17 05:53 Iron 28 mcg/dL (50-170) L 07/17/17 05:53 Transferrin 131 mg/dL (180-382) L 07/17/17 05:53 Ferritin 232 ng/ml (5-204) H 07/17/17 05:53 Total Bilirubin 1.5 mg/dL (0.2-1.2) H 07/16/17 12:39 - VTE Documentation of Mechanical Device: Venous foot pump, device Consult Discharge Plan - Plan Additional Instructions: [facility] DISCHARGE INSTRUCTIONS Dr. Dior PROCEDURE PERFORMED Reduction and fixation of right hip. Incision care -Daily dressing changes to the right hip with dry gauze and either paper tape or medipore tape. -Avoid soaking wound in water (no hot tubs, bathtubs, swimming pools). -May shower after 2 weeks from surgery date. Carefully wash incision with soap and water. Gently pat it dry. Don't rub the incision, or apply creams or lotions. Sit on a shower stool when showering to keep from falling. Weight bearing status -Weightbearing as tolerated to the bilateral lower extremities. Medications -Pain medication per the discharging medical doctor -Take your lovenox as prescribed for 28 days from the date of the surgery. Other -Knee high MIR hose 23 hours per day -Consult physical and occupational therapy for mobilization. -Up to chair with assistance at least twice per day. -Follow up with your primary care physician to discuss testing for bone mineral density. Follow-up with Dr. Dior at the office 2 weeks from the surgery date for a post operative evaluation. Call the office at [phone] to schedule appointment. Referrals: Bravo De Los Santos MD [Primary Care Provider] -
[2017-07-19] MEDS: Loratadine 10 MG TABLET PO SCH (09:12)
--- NOTE | 2017-07-19 13:44 | Discharge Summary ---
Date of Encounter: 07/19/17 Time of Encounter: 13:37 - Discharge Diagnosis (1) Hip fracture Priority: Primary Status: Acute Qualifiers: Encounter type: initial encounter Fracture type: closed Laterality: right Qualified Code(s): S72.001A - Fracture of unspecified part of neck of right femur, initial encounter for closed fracture (2) Acute blood loss as cause of postoperative anemia Priority: Secondary Status: Acute (3) Anxiety Priority: Secondary Status: Chronic (4) Depression Priority: Secondary Status: Chronic Qualifiers: Depression Type: unspecified Qualified Code(s): F32.9 - Major depressive disorder, single episode, unspecified (5) DVT prophylaxis Priority: Secondary Status: Acute - Discharge Medications Prescriptions: OxyCODONE/APAP 5/325 [Percocet 5/325 MG] 1 each PO Q6HR PRN #15 tablet PRN Reason: Pain ALPRAZolam [Xanax 1 MG Tablet] 1 mg PO TID PRN #15 PRN Reason: Anxiety Calcium Carbonate/Vitamin D3 [Calcium 500-Vit D3 600 Tablet] 1 each PO BID #60 tablet Home Medications: Megestrol Acetate [Megace] 40 mg PO BID 07/16/17 [History] Mirtazapine [Remeron] 15 mg PO HS 07/16/17 [History] ALPRAZolam [Xanax 1 MG Tablet] 1 mg PO TID PRN #15 07/19/17 [Rx] Calcium Carbonate/Vitamin D3 [Calcium 500-Vit D3 600 Tablet] 1 each PO BID #60 tablet 07/19/17 [Rx] Docusate [Colace] 100 mg PO BID PRN 07/19/17 [Rx] Enoxaparin [Lovenox] 40 mg SQ 0600 #14 07/19/17 [Rx] OxyCODONE/APAP 5/325 [Percocet 5/325 MG] 1 each PO Q6HR PRN #15 tablet 07/19/17 [Rx] Polyethylene Glycol 3350 [MiraLAX] 17 gm PO DAILY 07/19/17 [Rx] Allergies/Adverse Reactions: 3 Allergy/AdvReac Type Severity Reaction Status Date / Time No Known Allergies Allergy Verified 07/16/17 11:52 Date of admission: 07/16/17 13:05 Primary care physician: Bravo De Los Santos MD Consults: 08/25/17 15:34 Consult to Occupational Therapy [CONS] Routine Comment: Evaluate, develop and implement POC Reason for Consult: post hip surgery Consult to Orthopedic Navigator [CONS] [CONS] Routine Consult to Physical Therapy [CONS] Routine Comment: Evaluate, develop and implement POC Reason for Consult: post hip surgery Consult to Airbrush Painter [CONS] Routine Reason for SW Consult: post -op hip fracture RT Post Op Consult [CONS] Routine 07/16/17 17:18 Consult to Nutrition [CONS] Routine Comment: Consulting Provider: NUTRITION Reason for Dietary Consult: MST Score - Patient Status Disposition: Transfer SNF Condition: Good Overall status at discharge: patient is back to baseline - Discharge Instructions Follow Up With: Bravo De Los Santos MD [Primary Care Provider] - Additional Instructions: INTERMEDIATE DISCHARGE INSTRUCTIONS Dr. Dior PROCEDURE PERFORMED Reduction and fixation of right hip. Incision care -Daily dressing changes to the right hip with dry gauze and either paper tape or medipore tape. -Avoid soaking wound in water (no hot tubs, bathtubs, swimming pools). -May shower after 2 weeks from surgery date. Carefully wash incision with soap and water. Gently pat it dry. Don't rub the incision, or apply creams or lotions. Sit on a shower stool when showering to keep from falling. Weight bearing status -Weightbearing as tolerated to the bilateral lower extremities. Medications -Pain medication per the discharging medical doctor -Take your lovenox as prescribed for 28 days from the date of the surgery. Other -Knee high MIR hose 23 hours per day -Consult physical and occupational therapy for mobilization. -Up to chair with assistance at least twice per day. -Follow up with your primary care physician to discuss testing for bone mineral density. Follow-up with Dr. Dior at the office 2 weeks from the surgery date for a post operative evaluation. Call the office at [phone] to schedule appointment. - Diet and Activity Activity: as per physical therapy Diet: low salt diet Hospital course: Ms. Aragon is a 56 year old female with PMH Of depression and anxiety presents to the hospital for evaluation of right hip pain, s/p fall. Patient reports of having a mechanical fall last night and since the pain persisted, she came to the ER for further evaluation. Upon further evaluation, patient was found to have right hip fracture. Pt was admitted in the hospital and went for Hip repair on 07/16/17. Her Hb dropped down to 6.8 post operatively, received 2 U PRBC. Now her Hb stable around 8.3. Pt denied any melena / blood in her stool. She was seen by PT / OT who recommend ECF for short term PT / OT. So will d/c her to ECF in stable condition today. We checked her Vit D levels which were slightly low, so started her on Ca and Vit D supplements. Also asked the pt to talk to PCP to schedule for an out pt bone scan to assess for osteoporosis and further care. - Time Spent with Patient Total time spent providing and/or coordinating discharge services: - Constitutional Vitals: Temp Pulse Resp BP Pulse Ox 97.9 F 92 18 102/65 93 07/19/17 11:13 07/19/17 11:13 07/19/17 11:13 07/19/17 11:13 07/19/17 11:13 General appearance: Present: A&O X 3, no acute distress - Head Head exam: Present: atraumatic, normal inspection - Respiratory Respiratory exam: Present: decreased breath sounds. Absent: rales, respiratory distress, rhonchi, wheezes - Cardiovascular Cardiovascular exam: Present: RRR, +S1, +S2. Absent: systolic murmur - GI/Abdominal GI/Abdominal exam: Present: normal bowel sounds, soft. Absent: distended, rebound, rigid, tenderness - Extremities Exam Extremities exam: Absent: calf tenderness, pedal edema, tenderness Additional comments: No swelling / tenderness over Rt hip..clean incision - Psychiatric Psychiatric exam: Present: normal affect, normal mood - VTE Documentation of Mechanical Device: Venous foot pump, device
--- NOTE | 2017-07-19 13:46 | Physician Discharge Referral ---
ExtendedCare Referral Info Transfer To: [facility] Provider in Charge after Transfer: PCP Institutional Level of Care: Skilled - Diagnosis (1) Hip fracture Status: Acute (2) Acute blood loss as cause of postoperative anemia Status: Acute (3) Anxiety Status: Chronic (4) Depression Status: Chronic (5) DVT prophylaxis Status: Acute - Transfer Medications Prescriptions: OxyCODONE/APAP 5/325 [Percocet 5/325 MG] 1 each PO Q6HR PRN #15 tablet PRN Reason: Pain ALPRAZolam [Xanax 1 MG Tablet] 1 mg PO TID PRN #15 PRN Reason: Anxiety Calcium Carbonate/Vitamin D3 [Calcium 500-Vit D3 600 Tablet] 1 each PO BID #60 tablet Home Medications: Megestrol Acetate [Megace] 40 mg PO BID 07/16/17 [History] Mirtazapine [Remeron] 15 mg PO HS 07/16/17 [History] ALPRAZolam [Xanax 1 MG Tablet] 1 mg PO TID PRN #15 07/19/17 [Rx] Calcium Carbonate/Vitamin D3 [Calcium 500-Vit D3 600 Tablet] 1 each PO BID #60 tablet 07/19/17 [Rx] Docusate [Colace] 100 mg PO BID PRN 07/19/17 [Rx] Enoxaparin [Lovenox] 40 mg SQ 0600 #14 07/19/17 [Rx] OxyCODONE/APAP 5/325 [Percocet 5/325 MG] 1 each PO Q6HR PRN #15 tablet 07/19/17 [Rx] Polyethylene Glycol 3350 [MiraLAX] 17 gm PO DAILY 07/19/17 [Rx] Allergies/Adverse Reactions: 3 Allergy/AdvReac Type Severity Reaction Status Date / Time No Known Allergies Allergy Verified 07/16/17 11:52 - Respiratory Orders Smoking Cessation: Smoking cessation has been advised. For more information, call the [place] Tobacco Quit Line at 7-317-IFRV-NOW. CERTIFICATION: I certify that the transfer of the above named patient to an Extended Care Facility is necessary for the continuing treatment of the diagnosis listed. The above information is true and accurate reflection of patient's current condition. Confidential - Redisclosure prohibited without a patient's written consent.
[2017-07-19] MEDS: Mirtazapine 15 MG TABLET PO SCH (21:52)
[2017-07-20] MEDS: *HR* OxyCODONE Immed Rel 5 MG TABLET PO PRN ×4 (04:42→21:38)
[2017-07-20] MEDS: *HR* Enoxaparin 40 MG/0.4 ML SYRINGE SQ SCH (06:19)
[2017-07-20] MEDS: Loratadine 10 MG TABLET PO SCH (08:31)
--- NOTE | 2017-07-20 13:10 | Internal Med Progress Note ---
Date of Encounter: 07/20/17 Time of Encounter: 08:10 - Assessment and plan (1) Hip fracture Current Visit: Yes Status: Acute Assessment and plan: s/p ORIF - postop day #4 cont excellent post op care by Ortho team Cont PT / OT Cont PO [place] as needed On Lovenox for DVT prophylaxis concerned for osteoporosis -- checked Vit D levels Will ask PCP to schedule for out pt bone scan PT recommend for ECF / Swing bed transfer for short term PT / OT Stable for discharge today Qualifiers: Encounter type: initial encounter Fracture type: closed Laterality: right Qualified Code(s): S72.001A - Fracture of unspecified part of neck of right femur, initial encounter for closed fracture (2) Anxiety Current Visit: Yes Status: Chronic Assessment and plan: Continue home med Xanax PRN (3) Depression Current Visit: Yes Status: Chronic Assessment and plan: Continue mirtazapine Qualifiers: Depression Type: unspecified Qualified Code(s): F32.9 - Major depressive disorder, single episode, unspecified (4) DVT prophylaxis Current Visit: Yes Status: Acute Assessment and plan: Continue Lovenox at ECF - Time Spent With Patient 25 - 35 minutes - Subjective Interval history: Examined this morning. Patient is awake and alert. Not in any distress. Denies chest pain or shortness of breath. No fever. Hemodynamically stable. Tolerating oral diet well. Physical therapy has evaluated the patient. Stable for discharge to ECF today. No other acute events or complaints. - Constitutional Vitals: Temp Pulse Resp BP Pulse Ox 97.6 F 95 18 123/80 97 07/20/17 10:24 07/20/17 10:24 07/20/17 10:24 07/20/17 10:24 07/20/17 10:24 General appearance: Present: A&O X 3, pleasant, no acute distress, answers questions appropriately - Head Head exam: Present: atraumatic - Eye Eye exam: Present: EOMI - ENT ENT exam: Present: mucous membranes moist - Respiratory Respiratory exam: Present: CTAB. Absent: rales, rhonchi, wheezes, tachypnea - Cardiovascular Cardiovascular exam: Present: RRR, +S1, +S2 - GI/Abdominal GI/Abdominal exam: Present: soft. Absent: firm, guarding, hernia, tenderness - Extremities Exam Extremities exam: Present: radial pulses palpable and symmetrical. Absent: calf tenderness, cyanotic, pedal edema - Neurological Exam Neurological exam: Present: alert, oriented X3, no focal deficits. Absent: facial droop, speech deficit Internal Medicine: Result - Labs CBC & Chem 7: 07/19/17 04:46 07/17/17 05:53 - ABG Interpretation ABG results: PT/INR, D-dimer PT 15.1 Seconds (9.4-12.1) H 07/16/17 12:39 - Impressions Impressions Fluoroscopy 07/16/17 14:10 IMPRESSION: Intraprocedural fluoroscopic spot images as above. See separate procedure report for more information. D/ / Jorge L Hernandez MD / Jorge L Hernandez MD Interpreting Provider: Jorge L Hernandez MD Knee X-Ray 07/19/17 12:49 IMPRESSION: Mild DJD seen within the patellofemoral joint space. D/ / 07/19/2017 13:36:40 Rudy Adame MD / francis Interpreting Provider: Rudy Adame MD - VTE Documentation of Mechanical Device: Venous foot pump, device Consult Discharge Plan - Plan Additional Instructions: [facility] DISCHARGE INSTRUCTIONS Dr. Dior PROCEDURE PERFORMED Reduction and fixation of right hip. Incision care -Daily dressing changes to the right hip with dry gauze and either paper tape or medipore tape. -Avoid soaking wound in water (no hot tubs, bathtubs, swimming pools). -May shower after 2 weeks from surgery date. Carefully wash incision with soap and water. Gently pat it dry. Don't rub the incision, or apply creams or lotions. Sit on a shower stool when showering to keep from falling. Weight bearing status -Weightbearing as tolerated to the bilateral lower extremities. Medications -Pain medication per the discharging medical doctor -Take your lovenox as prescribed for 28 days from the date of the surgery. Other -Consult physical and occupational therapy for mobilization. -Up to chair with assistance at least twice per day. -Follow up with your primary care physician to discuss testing for bone mineral density. Follow-up with Dr. Dior at the office 2 weeks from the surgery date for a post operative evaluation. Call the office at [phone] to schedule appointment. Referrals: Bravo De Los Santos MD [Primary Care Provider] - 07/27/17 9:45 am Mauri Dior MD [Partnered Physician] - 08/02/17 10:00 am Prescriptions: OxyCODONE/APAP 5/325 [Percocet 5/325 MG] 1 each PO Q6HR PRN #15 tablet PRN Reason: Pain ALPRAZolam [Xanax 1 MG Tablet] 1 mg PO TID PRN #15 PRN Reason: Anxiety Calcium Carbonate/Vitamin D3 [Calcium 500-Vit D3 600 Tablet] 1 each PO BID #60 tablet
--- NOTE | 2017-07-20 21:18 | Orthopedics Progress Note ---
Date of Encounter: 07/20/17 Time of Encounter: 21:13 - Assessment and Plan (1) Hip fracture Current Visit: Yes Status: Acute I did discuss the diagnosis in detail with the patient. She does have a right intertrochanteric hip fracture as described above. Treatment options were discussed and my recommendation was for internal fixation in order to stabilize the right hip, control the pain, and help facilitate nursing care. The risks discussed included but were not limited to stiffness, bleeding, infection, blood clots, damage to neurovascular structures, tendons, ligaments, and bone. Also discussed was the risk of continued symptoms and possible need for further procedures. I did discuss the anesthesia risks including stroke, heart attack, and . I did discuss the reasonable, foreseeable postoperative course with the patient. The patient does have a low hemoglobin and history of anemia. A type and screen has been ordered, and she is at high risk of requiring a blood transfusion. She will require medical clearance. I did discuss this with the patient in simple terms and she did wish to proceed and consent was obtained. Qualifiers: Encounter type: initial encounter Fracture type: closed Laterality: right Qualified Code(s): S72.001A - Fracture of unspecified part of neck of right femur, initial encounter for closed fracture Subjective Interval history: S: Pain controlled to the right hip and groin. No new injuries or complaints. Continues to mobilize slowly. O: Afebrile and vital signs are stable. Dressing changed and the incisions are clean, dry, and intact. Mild pain with logrolling and axial loading of the right side. She can dorsiflex and plantarflex her ankle and toes. The foot is warm and well-perfused. A: Post internal fixation of the right hip with acute blood loss anemia from surgery P: Weightbearing as tolerated on the bilateral lower extremities Physical therapy and occupational therapy The patient is receiving Lovenox for DVT prophylaxis as well as sequential compression devices Daily dressing changes with dry gauze and Medipore tape. Orthopedically stable for discharge. Will begin 4000 IU of Vitamin D3 daily and 1200 mg Calcium daily for hypovitaminosis D. Rehabilitation upon discharge. Follow-up with me ~2 weeks from the surgery date. Objective Vital signs: Vital Signs Temp Pulse Resp BP Pulse Ox 07/20/17 15:02 98.5 F 92 18 146/84 97 07/20/17 10:24 97.6 F 95 18 123/80 97 07/20/17 06:36 98.1 F 81 18 131/84 98 07/20/17 05:19 98.2 F 83 18 99/63 97 07/19/17 23:57 98.5 F 69 16 97/64 95 07/19/17 21:34 98.2 F 77 17 102/64 97 Intake and Output 07/20/17 07/20/17 07/20/17 07:59 15:59 23:59 Intake Total 600 / 600 100 / 100 Output Total 1100 / 1100 800 / 800 Balance -500 / -500 -700 / -700 Intake: Oral 600 / 600 100 / 100 Output: Urine 1100 / 1100 800 / 800 Other: Meal Lunch Percent of Meal Consumed 80% # Voids 1 - Labs CBC & BMP: 07/19/17 04:46 07/17/17 05:53 Labs: Abnormal lab results WBC 3.5 K/mcL (4.3-11.1) L 07/18/17 05:33 RBC 2.57 M/mcL (3.82-4.97) L 07/18/17 05:33 Hgb 8.3 g/dL (11.5-15.4) L 07/19/17 04:46 Hct 24.2 % (35.3-44.9) L 07/19/17 04:46 MCV 102.7 fL (83.0-100.0) H D 07/18/17 05:33 MCH 34.2 pg (28.0-33.3) H 07/18/17 05:33 RDW 20.8 % (11.5-14.5) H 07/18/17 05:33 Plt Count 109 K/mcL (140-400) L 07/18/17 05:33 PT 15.1 Seconds (9.4-12.1) H 07/16/17 12:39 Chloride 110 mEq/L (98-109) H 07/17/17 05:53 Calcium 8.1 mg/dL (8.6-10.8) L 07/17/17 05:53 Iron 28 mcg/dL (50-170) L 07/17/17 05:53 Transferrin 131 mg/dL (180-382) L 07/17/17 05:53 Ferritin 232 ng/ml (5-204) H 07/17/17 05:53 Total Bilirubin 1.5 mg/dL (0.2-1.2) H 07/16/17 12:39 25-OH Vitamin D Total 26 ng/mL (30-80) L 07/17/17 05:53 - VTE Documentation of Mechanical Device: Venous foot pump, device Consult Discharge Plan - Plan Additional Instructions: LONGTERM DISCHARGE INSTRUCTIONS Dr. Dior PROCEDURE PERFORMED Reduction and fixation of right hip. Incision care -Daily dressing changes to the right hip with dry gauze and either paper tape or medipore tape. -Avoid soaking wound in water (no hot tubs, bathtubs, swimming pools). -May shower after 2 weeks from surgery date. Carefully wash incision with soap and water. Gently pat it dry. Don't rub the incision, or apply creams or lotions. Sit on a shower stool when showering to keep from falling. Weight bearing status -Weightbearing as tolerated to the bilateral lower extremities. Medications -Pain medication per the discharging medical doctor -Take your lovenox as prescribed for 28 days from the date of the surgery. -Vitamin D3 4000 IU by mouth daily. Calcium 1200 mg by mouth daily. Other -Consult physical and occupational therapy for mobilization. -Up to chair with assistance at least twice per day. -Follow up with your primary care physician to discuss testing for bone mineral density. Follow-up with Dr. Dior at the office 2 weeks from the surgery date for a post operative evaluation. Call the office at [phone] to schedule appointment. Referrals: Bravo De Los Santos MD [Primary Care Provider] - 07/27/17 9:45 am Mauri Dior MD [Partnered Physician] - 08/02/17 10:00 am Prescriptions: ALPRAZolam [Xanax 1 MG Tablet] 1 mg PO TID PRN #15 PRN Reason: Anxiety Calcium Carbonate/Vitamin D3 [Calcium 500-Vit D3 600 Tablet] 1 each PO BID #60 tablet OxyCODONE/APAP 5/325 [Percocet 5/325 MG] 1 each PO Q6HR PRN #15 tablet PRN Reason: Pain
[2017-07-20] MEDS: Mirtazapine 15 MG TABLET PO SCH (21:39)
[2017-07-20] MEDS: ALPRAZolam 1 MG TABLET PO PRN (21:41)
[2017-07-21] MEDS: *HR* OxyCODONE Immed Rel 5 MG TABLET PO PRN ×4 (05:34→21:11)
[2017-07-21] MEDS: *HR* Enoxaparin 40 MG/0.4 ML SYRINGE SQ SCH (05:35)
--- NOTE | 2017-07-21 08:29 | Internal Med Progress Note ---
Date of Encounter: 07/21/17 Time of Encounter: 07:50 - Assessment and plan (1) Hip fracture Current Visit: Yes Status: Acute Assessment and plan: s/p ORIF - postop day #5 cont excellent post op care by Ortho team Cont PT / OT Cont PO [place] as needed On Lovenox for DVT prophylaxis concerned for osteoporosis -- checked Vit D levels Will ask PCP to schedule for out pt bone scan PT recommend for ECF / Swing bed transfer for short term PT / OT Stable for discharge to ECF today Qualifiers: Encounter type: initial encounter Fracture type: closed Laterality: right Qualified Code(s): S72.001A - Fracture of unspecified part of neck of right femur, initial encounter for closed fracture (2) Anxiety Current Visit: Yes Status: Chronic Assessment and plan: Continue home med Xanax PRN (3) Depression Current Visit: Yes Status: Chronic Assessment and plan: Continue mirtazapine Qualifiers: Depression Type: unspecified Qualified Code(s): F32.9 - Major depressive disorder, single episode, unspecified (4) DVT prophylaxis Current Visit: Yes Status: Acute Assessment and plan: Continue Lovenox at ECF - Time Spent With Patient 25 - 35 minutes - Subjective Interval history: Examined this morning. Patient is awake and alert. Not in any distress. Denies chest pain or shortness of breath. No fever. Hemodynamically stable. Tolerating oral diet well. Physical therapy to be continued. Stable for discharge to ECF today. No other acute events or complaints. - Constitutional Vitals: Temp Pulse Resp BP Pulse Ox 98.1 F 67 19 90/62 97 07/21/17 04:11 07/21/17 04:11 07/21/17 04:11 07/21/17 04:11 07/21/17 04:11 General appearance: Present: A&O X 3, pleasant, no acute distress, answers questions appropriately - Head Head exam: Present: atraumatic - Eye Eye exam: Present: EOMI - ENT ENT exam: Present: mucous membranes moist - Respiratory Respiratory exam: Present: CTAB. Absent: rales, rhonchi, wheezes, tachypnea - Cardiovascular Cardiovascular exam: Present: RRR, +S1, +S2 - GI/Abdominal GI/Abdominal exam: Present: soft. Absent: distended, firm, guarding, tenderness - Extremities Exam Extremities exam: Present: radial pulses palpable and symmetrical. Absent: cyanotic, pedal edema - Neurological Exam Neurological exam: Present: alert, oriented X3, no focal deficits. Absent: facial droop, speech deficit Internal Medicine: Result - Labs CBC & Chem 7: 07/19/17 04:46 07/17/17 05:53 - ABG Interpretation ABG results: PT/INR, D-dimer PT 15.1 Seconds (9.4-12.1) H 07/16/17 12:39 - Impressions Impressions Fluoroscopy 07/16/17 14:10 IMPRESSION: Intraprocedural fluoroscopic spot images as above. See separate procedure report for more information. D/ / Jorge L Hernandez MD / Jorge L Hernandez MD Interpreting Provider: Jorge L Hernandez MD - VTE Documentation of Mechanical Device: Venous foot pump, device Consult Discharge Plan - Plan Additional Instructions: CARE HOME DISCHARGE INSTRUCTIONS Dr. Dior PROCEDURE PERFORMED Reduction and fixation of right hip. Incision care -Daily dressing changes to the right hip with dry gauze and either paper tape or medipore tape. -Avoid soaking wound in water (no hot tubs, bathtubs, swimming pools). -May shower after 2 weeks from surgery date. Carefully wash incision with soap and water. Gently pat it dry. Don't rub the incision, or apply creams or lotions. Sit on a shower stool when showering to keep from falling. Weight bearing status -Weightbearing as tolerated to the bilateral lower extremities. Medications -Pain medication per the discharging medical doctor -Take your lovenox as prescribed for 28 days from the date of the surgery. -Vitamin D3 4000 IU by mouth daily. Calcium 1200 mg by mouth daily. Other -Consult physical and occupational therapy for mobilization. -Up to chair with assistance at least twice per day. -Follow up with your primary care physician to discuss testing for bone mineral density. Follow-up with Dr. Dior at the office 2 weeks from the surgery date for a post operative evaluation. Call the office at [phone] to schedule appointment. Referrals: Bravo De Los Santos MD [Primary Care Provider] - 07/27/17 9:45 am Mauri Dior MD [Partnered Physician] - 08/02/17 10:00 am Prescriptions: OxyCODONE/APAP 5/325 [Percocet 5/325 MG] 1 each PO Q6HR PRN #15 tablet PRN Reason: Pain ALPRAZolam [Xanax 1 MG Tablet] 1 mg PO TID PRN #15 PRN Reason: Anxiety Calcium Carbonate/Vitamin D3 [Calcium 500-Vit D3 600 Tablet] 1 each PO BID #60 tablet
[2017-07-21] MEDS: Cholecalciferol (D-3) 1,000 UNIT TABLET PO SCH (09:59)
[2017-07-21] MEDS: Loratadine 10 MG TABLET PO SCH (09:59)
[2017-07-21] MEDS: Mirtazapine 15 MG TABLET PO SCH (21:11)
[2017-07-21] MEDS: ALPRAZolam 1 MG TABLET PO PRN (21:11)
[2017-07-22] MEDS: *HR* OxyCODONE Immed Rel 5 MG TABLET PO PRN ×2 (05:55→13:42)
[2017-07-22] MEDS: *HR* Enoxaparin 40 MG/0.4 ML SYRINGE SQ SCH (05:55)
[2017-07-22 07:41] LABS: Hematocrit 30.7 % (35.3-44.9)
--- NOTE | 2017-07-22 08:39 | Internal Med Progress Note ---
Date of Encounter: 07/22/17 Time of Encounter: 07:40 - Assessment and plan (1) Hip fracture Current Visit: Yes Status: Acute Assessment and plan: s/p ORIF - postop day #6 cont excellent post op care by Ortho team Cont PT / OT Cont PO Tuttle as needed On Lovenox for DVT prophylaxis concerned for osteoporosis -- checked Vit D levels Will ask PCP to schedule for out pt bone scan PT recommend for ECF / Swing bed transfer for short term PT / OT, Stable for discharge to ECF today Qualifiers: Encounter type: initial encounter Fracture type: closed Laterality: right Qualified Code(s): S72.001A - Fracture of unspecified part of neck of right femur, initial encounter for closed fracture (2) Anxiety Current Visit: Yes Status: Chronic Assessment and plan: Continue home med Xanax PRN (3) Depression Current Visit: Yes Status: Chronic Assessment and plan: Continue mirtazapine Qualifiers: Depression Type: unspecified Qualified Code(s): F32.9 - Major depressive disorder, single episode, unspecified (4) DVT prophylaxis Current Visit: Yes Status: Acute Assessment and plan: Continue Lovenox at ECF - Time Spent With Patient 25 - 35 minutes - Subjective Interval history: Examined this morning. Patient is awake and alert. Not in any distress. Denies chest pain or shortness of breath. No fever. Hemodynamically stable. Tolerating oral diet. Physical therapy to be continued. Stable for discharge to ECF today. No other acute events or complaints. - Constitutional Vitals: Temp Pulse Resp BP Pulse Ox 98.2 F 77 18 98/61 100 07/22/17 07:16 07/22/17 07:16 07/22/17 07:16 07/22/17 07:16 07/22/17 07:16 General appearance: Present: A&O X 3, pleasant, no acute distress, answers questions appropriately - Head Head exam: Present: atraumatic - Eye Eye exam: Present: EOMI - ENT ENT exam: Present: mucous membranes moist - Respiratory Respiratory exam: Present: CTAB. Absent: rales, rhonchi, wheezes, tachypnea - Cardiovascular Cardiovascular exam: Present: RRR, +S1, +S2 - GI/Abdominal GI/Abdominal exam: Present: soft. Absent: distended, firm, guarding, tenderness - Extremities Exam Extremities exam: Present: radial pulses palpable and symmetrical. Absent: cyanotic, pedal edema - Neurological Exam Neurological exam: Present: alert, oriented X3, no focal deficits. Absent: facial droop, speech deficit Internal Medicine: Result - Labs CBC & Chem 7: 07/22/17 07:33 07/17/17 05:53 Labs: Short CBC 07/22/17 Range/Units 07:33 Hgb 10.0 L D (11.5-15.4) g/dL Hct 30.7 L (35.3-44.9) % - ABG Interpretation ABG results: PT/INR, D-dimer PT 15.1 Seconds (9.4-12.1) H 07/16/17 12:39 - VTE Documentation of Mechanical Device: Venous foot pump, device Consult Discharge Plan - Plan Additional Instructions: DETENTION DISCHARGE INSTRUCTIONS Dr. Dior PROCEDURE PERFORMED Reduction and fixation of right hip. Incision care -Daily dressing changes to the right hip with dry gauze and either paper tape or medipore tape. -Avoid soaking wound in water (no hot tubs, bathtubs, swimming pools). -May shower after 2 weeks from surgery date. Carefully wash incision with soap and water. Gently pat it dry. Don't rub the incision, or apply creams or lotions. Sit on a shower stool when showering to keep from falling. Weight bearing status -Weightbearing as tolerated to the bilateral lower extremities. Medications -Pain medication per the discharging medical doctor -Take your lovenox as prescribed for 28 days from the date of the surgery. -Vitamin D3 4000 IU by mouth daily. Calcium 1200 mg by mouth daily. Other -Consult physical and occupational therapy for mobilization. -Up to chair with assistance at least twice per day. -Follow up with your primary care physician to discuss testing for bone mineral density. Follow-up with Dr. Dior at the office 2 weeks from the surgery date for a post operative evaluation. Call the office at [phone] to schedule appointment. Referrals: Bravo De Los Santos MD [Primary Care Provider] - 07/27/17 9:45 am Mauri Dior MD [Partnered Physician] - 08/02/17 10:00 am Prescriptions: OxyCODONE/APAP 5/325 [Percocet 5/325 MG] 1 each PO Q6HR PRN #15 tablet PRN Reason: Pain ALPRAZolam [Xanax 1 MG Tablet] 1 mg PO TID PRN #15 PRN Reason: Anxiety Calcium Carbonate/Vitamin D3 [Calcium 500-Vit D3 600 Tablet] 1 each PO BID #60 tablet
[2017-07-22] MEDS: Cholecalciferol (D-3) 1,000 UNIT TABLET PO SCH (09:18)
[2017-07-22] MEDS: Loratadine 10 MG TABLET PO SCH (09:18)
[2017-07-22 12:02] VITALS: BP 101/65
== END 2017-07-22 14:45 | DRG 481 ==
LOC: EMEROO 11:52 → 3NENU 13:05 → SUATTDRO 13:05 → 3NENU 13:22
PROVIDERS: ADMIT Internal Medicine; ATTEND Family Medicine